=== PATIENT | female | born 1995 | race Caucasian/White ===

== ENCOUNTER 2016-10-03 09:03 | Emergency (ER) | payer MEDICAID ==
[2016-10-03 09:09] VITALS: RESP 16
--- NOTE | 2016-10-03 09:16 | CPEKG ---
Heart Rate: 91 RR Interval: 659 P-R Interval: 156 QRSD Interval: 84 QT Interval: 364 QTC Interval: 448 P [place]: 50 QRS [place]: 73 T Wave [place]: -6 EKG Severity - NORMAL ECG - EKG Impression: SINUS RHYTHM Electronically Signed By: Sanjiv Hawkins 03-Oct-2016 13:27:43
--- NOTE | 2016-10-03 10:23 | EDPHY ---
H & P Smoking Status: Never smoked Time Seen by Provider: 10/03/16 09:32 HPI/ROS: CHIEF COMPLAINT: Chest pain HISTORY OF PRESENT ILLNESS: 21-year-old female presents to the emergency department by private vehicle with a sudden onset of chest pain at 8 o'clock this morning. Patient states that she was sitting eating breakfast and then developed sudden onset of pain. She denies feeling short of breath. She has pain especially when she tries to take a big deep breath. She has never had pain like this in the past. She denies calf pain or swelling. Denies back pain. Denies neck pain. Denies abdominal pain. Her last menstrual period was 2 weeks ago and she denies . REVIEW OF SYSTEMS: Constitutional: No fever, no chills. Eyes: No double or blurry vision. ENT: No sore throat. Respiratory: No cough, no shortness of breath. Cardiac: Left-sided chest pain as above. Gastrointestinal: No abdominal pain, vomiting or diarrhea. Genitourinary: No dysuria. Musculoskeletal: No neck or back pain. Skin: No rashes. Neurological: No headache. (Erika Lewis) Past Medical/Surgical History: Negative (Erika Lewis) Social History: Single (Erika Lewis) Physical Exam: General Appearance: Alert, no distress. Eyes: Pupils equal and round. Extraocular motions are all intact. ENT: Mouth: Mucous membranes moist. Respiratory: No wheezing, rhonchi, or rales, lungs are clear to auscultation. Mild pain with palpation to the left anterior aspect of the chest just above her left breast. No palpable crepitus. No obvious swelling or ecchymosis noted. No cellulitis noted. Cardiovascular: Regular rate and rhythm. Gastrointestinal: Abdomen is soft and nontender, no masses, no rebound or guarding, bowel sounds normal. Neurological: Alert and oriented x 3, cranial nerves II through XII grossly intact Skin: Warm and dry, no rashes. Musculoskeletal: Nontender to palpate along the cervical, thoracic or lumbar spine. Neck is supple. Extremities: Full range of motion and no peripheral edema. Psychiatric: Patient is oriented X 3, there is no agitation. (Erika Lewis) Constitutional: Initial Vital Signs Temperature (C) 36.5 C 10/03/16 09:08 Heart Rate 94 10/03/16 09:08 Respiratory Rate 16 10/03/16 09:08 Blood Pressure 128/80 H 10/03/16 09:08 O2 Sat (%) 95 10/03/16 09:08 O2 Delivery Mode Room Air Allergies/Adverse Reactions: No Known Allergies Allergy (Unverified 01/19/15 05:28) Home Medications: Medication Instructions Recorded No Medications [NO HOME 0 ea MISC 05/17/11 MEDICATIONS] traMADol [Ultram 50 mg (*)] 50 mg PO TID PRN #21 tab 01/01/16 Medical Decision Making - Diagnostics Imaging: I viewed and interpreted images myself - Diagnostics EKG Interpretation: EKG: Complete interpretation has been separately recorded in the [employer] archive. Summary impression: Sinus rhythm, no ischemic changes noted (Sanjiv Hawkins) Imaging Results: Imaging Impressions Chest X-Ray 10/03/16 09:33 Impression: Mild cardiac silhouette enlargement. ED Course/Re-evaluation: 21-year-old female presents to the emergency department complaining of left anterior chest pain. Patient reports no trauma. She has reproducible pain with palpation to the anterior aspect of her chest. She was given IV Toradol for pain and was feeling much better. Laboratory studies were unremarkable. Chest x-ray and EKG were normal. Patient is comfortable being discharged home. (Erika Lewis) Differential Diagnosis: Chest pain including but not limited to myocardial ischemia, pulmonary embolus, chest wall pain, costochondritis, pleural inflammation and pulmonary infectious causes. (Erika Lewis) Other Provider: I evaluated and participated in the management of the patient. I also evaluated the patient independently. My co-signature indicates that I have reviewed this chart and I agree with the findings and plan of care as documented. The patient presents to the ED with mild intermittent pleuritic chest pain. The patient's D-dimer is negative which I feel adequately excludes pulmonary embolism. The patient's EKG and cardiac testing are normal. The patient's troponin is also normal. The patient will be instructed to use ibuprofen as needed for possible mild pleurisy. She will be discharged home with customary aftercare instructions and return precautions. (Sanjiv Hawkins) - Data Points Laboratory Results: Laboratory Results 10/03/16 09:23 10/03/16 09:23 10/03/16 10/03/16 10/03/16 09:23 09:23 09:23 WBC RBC Hgb Hct MCV MCH MCHC RDW Plt Count MPV Neut % (Auto) Lymph % (Auto) [place] % (Auto) Eos % (Auto) Baso % (Auto) Nucleat RBC Rel Count Absolute Neuts (auto) Absolute Lymphs (auto) Absolute Monos (auto) Absolute Eos (auto) Absolute Basos (auto) Absolute Nucleated RBC Immature Gran % Immature Gran # D-Dimer < 0.27 ug/mLFEU ug/mLFEU (0.00-0.50) Sodium 141 mEq/L mEq/L (134-144) Potassium 3.6 mEq/L mEq/L (3.5-5.2) Chloride 106 mEq/L mEq/L (97-110) Carbon Dioxide 21 mEq/l L mEq/l (22-31) Anion Gap 14 mEq/L mEq/L (8-16) BUN 11 mg/dL mg/dL (7-23) Creatinine 0.8 mg/dL mg/dL (0.6-1.0) Estimated GFR > 60 Glucose 124 mg/dL H mg/dL (70-100) Calcium 9.1 mg/dL mg/dL (8.5-10.4) Beta HCG, Qual NEGATIVE 10/03/16 09:23 WBC 9.45 10^3/uL 10^3/uL (3.80-9.50) RBC 4.65 10^6/uL 10^6/uL (4.18-5.33) Hgb 12.9 g/dL g/dL (12.6-16.3) Hct 40.2 % % (38.0-47.0) MCV 86.5 fL fL (81.5-99.8) MCH 27.7 pg L pg (27.9-34.1) MCHC 32.1 g/dL L g/dL (32.4-36.7) RDW 14.4 % % (11.5-15.2) Plt Count 322 10^3/uL 10^3/uL (150-400) MPV 10.6 fL fL (8.7-11.7) Neut % (Auto) 63.6 % % (39.3-74.2) Lymph % (Auto) 27.6 % % (15.0-45.0) [place] % (Auto) 4.9 % % (4.5-13.0) Eos % (Auto) 3.4 % % (0.6-7.6) Baso % (Auto) 0.2 % L % (0.3-1.7) Nucleat RBC Rel Count 0.0 % % (0.0-0.2) Absolute Neuts (auto) 6.01 10^3/uL 10^3/uL (1.70-6.50) Absolute Lymphs (auto) 2.61 10^3/uL 10^3/uL (1.00-3.00) Absolute Monos (auto) 0.46 10^3/uL 10^3/uL (0.30-0.80) Absolute Eos (auto) 0.32 10^3/uL 10^3/uL (0.03-0.40) Absolute Basos (auto) 0.02 10^3/uL 10^3/uL (0.02-0.10) Absolute Nucleated RBC 0.00 10^3/uL 10^3/uL (0-0.01) Immature Gran % 0.3 % % (0.0-1.1) Immature Gran # 0.03 10^3/uL 10^3/uL (0.00-0.10) D-Dimer Sodium Potassium Chloride Carbon Dioxide Anion Gap BUN Creatinine Estimated GFR Glucose Calcium Beta HCG, Qual Medications Given: Discontinued Medications Sodium Chloride (Ns) 1,000 mls @ 0 mls/hr IV ONCE ONE PRN Reason: Wide Open Stop: 10/03/16 11:18 Last Admin: 10/03/16 11:24 Dose: 1,000 mls Ketorolac Tromethamine (Toradol) 30 mg IVP EDNOW ONE Stop: 10/03/16 11:18 Last Admin: 10/03/16 11:25 Dose: 30 mg Departure - Departure Disposition: Home, Routine, Self-Care Clinical Impression: Chest pain Qualifiers: Chest pain type: unspecified Qualified Code(s): R07.9 - Chest pain, unspecified Condition: Good Instructions: Chest Pain (ED) Additional Instructions: Ibuprofen 600mg every 8 hours for pain as directed. Return if you feel short of breath, increasing pain, or if you feel worse in any way. Referrals: Leyda Abreu DO [Doctor of Osteopathy] - As per Instructions (Primary care provider human services professional)
[2016-10-03 10:26] LABS: % IMMATURE GRANULYOCYTES 0.3 % (0.0-1.1); ABSOLUTE IMMATURE GRANULOCYTES 0.03 10^3/uL (0.00-0.10); ADD DIFF? NO; ADD MORPH? NO; ADD SCAN? NO; ATYPICAL LYMPHOCYTE FLAG 0 (0-99); FRAGMENT RBC FLAG 0 (0-99); HEMATOCRIT 40.2 % (38.0-47.0); HEMOGLOBIN 12.9 g/dL (12.6-16.3); LEFT SHIFT FLG 0 (0-99); LIPEMIA HEMOLYSIS FLAG 80 (0-99); MEAN CELL HEMOGLOBIN 27.7 pg (27.9-34.1); MEAN CELL HEMOGLOBIN CONCENTR. 32.1 g/dL (32.4-36.7); MEAN CELL VOLUME 86.5 fL (81.5-99.8); MEAN PLATELET VOLUME 10.6 fL (8.7-11.7); PLATELET CLUMPS FLAG 0 (0-99); PLATELET COUNT 322 10^3/uL (150-400); RED BLOOD CELL COUNT 4.65 10^6/uL (4.18-5.33); RED CELL DISTRIBUTION WIDTH 14.4 % (11.5-15.2)
[2016-10-03 10:31] LABS: ANION GAP 14 mEq/L (8-16); CALCIUM 9.1 mg/dL (8.5-10.4); CARBON DIOXIDE 21 mEq/l (22-31); CHLORIDE 106 mEq/L (97-110); CREATININE 0.8 mg/dL (0.6-1.0); GLOMERULAR FILTRATION RATE > 60; GLUCOSE 124 mg/dL (70-100); POTASSIUM 3.6 mEq/L (3.5-5.2); SODIUM 141 mEq/L (134-144)
[2016-10-03] MEDS ORDERED: NS 1,000 ML IV ONE (11:17)
[2016-10-03] MEDS ORDERED: KETOROLAC 30 MG/1 ML SDV IVP ONE (11:17)
[2016-10-03 13:25] VITALS: BP 121/75; PULSE 70; TEMP 98.8; O2SAT 97
== END 2016-10-03 13:27 | disposition home or self-care (01) ==
DX: R07.9 Chest pain, unspecified (principal)
CPT/HCPCS: 96374; J1885

== ENCOUNTER 2017-07-28 00:27 | Emergency (ER) | payer OTHER, MEDICAID ==
[2017-07-28 00:32] VITALS: BP 128/75
[2017-07-28] MEDS ORDERED: IBUPROFEN 600 MG TAB PO ONE (00:48)
--- NOTE | 2017-07-28 01:01 | EDPHY ---
H & P Stated Complaint: TWISTED R ANKLE WHILE AT WORK Time Seen by Provider: 07/28/17 00:49 HPI/ROS: Chief Complaint: Ankle pain HPI: A 21-year-old woman twisted her ankle while at work, inverting her left foot when she took a step. She did not fall. No other traumas. No prior injuries. Now is pain with weight-bearing. ROS: 10 point Review of Systems is negative except as noted in the HPI. PMH: Denies Social History: [No] smoking, [no] alcohol, [ no recreational drug use] Family History: [non-contributory] Physical Exam: General: Awake, alert, no acute distress Left ankle. She has tenderness over the lateral malleolus and inferior along the talofibular ligament. There is no significant swelling. She has decreased range of motion secondary to pain. There is no proximal leg tenderness. There is no medial tenderness. She has 2+ dorsalis pedis pulses. Sensation is intact. Skin: No rash - Personal History LMP (Females 10-55): 22-28 Days Ago Current Tetanus/Diphtheria Vaccine: Yes Current Tetanus Diphtheria and Acellular Pertussis (TDAP): Yes - Medical/Surgical History Hx Asthma: Yes Hx Chronic Respiratory Disease: No Hx Diabetes: No Hx Cardiac Disease: No Hx Renal Disease: No Hx Cirrhosis: No Hx Alcoholism: No Hx HIV/AIDS: No Hx Splenectomy or Spleen Trauma: No Other PMH: asthma - Social History Smoking Status: Never smoked Constitutional: Initial Vital Signs Temperature (C) 36.8 C 07/28/17 00:30 Heart Rate 87 07/28/17 00:30 Respiratory Rate 18 07/28/17 00:30 Blood Pressure 128/75 H 07/28/17 00:30 O2 Sat (%) 95 07/28/17 00:30 O2 Delivery Mode Room Air Allergies/Adverse Reactions: No Known Allergies Allergy (Unverified 07/28/17 00:32) Home Medications: Medication Instructions Recorded NK [No Known Home Meds] 07/28/17 Medical Decision Making - Diagnostics Imaging Results: X-ray shows a small medial talar avulsion consistent with a sprain of a small avulsion fracture. Patient has been placed in a Velcro ankle splint. Given crutches. I have referred to Orthopedics for follow-up. - Data Points Medications Given: Discontinued Medications Ibuprofen (Motrin) 600 mg PO EDNOW ONE Stop: 07/28/17 00:49 Last Admin: 07/28/17 00:55 Dose: 600 mg Departure - Departure Disposition: Home, Routine, Self-Care Clinical Impression: Ankle sprain Condition: Good Instructions: Ankle Sprain (ED), Ankle Stirrup Splint (ED), Crutch Instructions (ED), R.I.C.E. Treatment (ED) Additional Instructions: Alternate acetaminophen (1000 mg) with ibuprofen (400 mg) every 4 hours as needed for pain. Follow up with Orthopedics in 3-4 days for further evaluation. Referrals: Gabino Coleman MD [Medical Doctor] - As per Instructions
== END 2017-07-28 01:20 | disposition home or self-care (01) ==
DX: S93.492A Sprain of other ligament of left ankle, initial encounter (principal); J45.909 Unspecified asthma, uncomplicated; X50.9XXA Other and unspecified overexertion or strenuous movements or postures, initial encounter; Y99.0 Civilian activity done for income or pay; Y93.89 Activity, other specified
CPT/HCPCS: L4350